=== PATIENT | female | born 2000 | race Caucasian/White ===

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

== ENCOUNTER 2018-09-19 19:48 | Emergency (ER) | payer MEDICAID ==
[~2018-09-19] VITALS: Ht 165.1 cm; Wt 62.0 kg
[~2018-09-19 19:48] MED LIST changes: +HYDR-4383 PO; -HYDR-569 PO
[2018-09-19 19:56] VITALS: BP 124/62
== END 2018-09-20 | disposition home or self-care (01) ==
LOC: ER 19:49
DX: J04.0 Acute laryngitis (principal); F17.200 Nicotine dependence, unspecified, uncomplicated; Z79.899 Other long term (current) drug therapy
CPT/HCPCS: 99281

== ENCOUNTER 2019-03-08 10:17 | Emergency (ER) | payer MEDICAID ==
[~2019-03-08] VITALS: Ht 165.1 cm; Wt 65.0 kg
[2019-03-08] MEDS ORDERED: normal saline 1000ML IV soln IVB ONE (10:50)
[2019-03-08] MEDS ORDERED: ketorolac trometh. 30mg/ml inj. IV ONE (10:50)
[2019-03-08] MEDS ORDERED: morphine 4 MG/ML inj SYRINge IV PRN (10:50)
[2019-03-08] MEDS ORDERED: ondansetron/PF 4mg/2ml inj IV ONE (10:50)
[2019-03-08 10:56] LABS: CLARITY,URINE SLIGHTLY CLOUDY (Clear); COLOR,URINE STRAW (Yellow); GLUCOSE, URINE NEGATIVE (Neg); KETONES,URINE NEGATIVE (Neg); LEUKOCYTE ESTERASE ,URINE NEGATIVE (Neg); NITRITES, URINE NEGATIVE (Neg); OCCULT BLOOD,URINE NEGATIVE (Neg); PROTEIN,URINE NEGATIVE (Neg); UROBILINOGEN,URINE 0.2 E.U/dL (0.2-1.0)
[2019-03-08 10:57] LABS: UA COLLECTION TYPE CLN CATCH MIDSTREAM
[2019-03-08 11:04] LABS: BASOPHILS % (AUTO) 0.3 % (0-1); EOSINOPHILS % (AUTO) 0.5 % (0-6); HEMATOCRIT 44.2 % (35.0-45.0); HEMOGLOBIN 14.9 g/dl (12.0-16.0); LYMPHOCYTES # (AUTO) 1.6 X10'3 (1.1-4.8); LYMPHOCYTES % (AUTO) 16.2 % (21-51); MEAN CORPUSCULAR HEMOGLOBIN 31.2 PG (27.0-31.0); MEAN CORPUSCULAR HGB CONC 33.6 g/dL (33.0-36.5); MEAN CORPUSCULAR VOLUME 92.9 FL (78-98); MEAN PLATELET VOLUME 8.3 FL (7.4-10.4); MONOCYTES # (AUTO) 0.8 X10'3 (0-0.9); MONOCYTES % (AUTO) 7.9 % (2-12); NEUTROPHILS # (AUTO) 7.4 X10'3 (1.8-7.7); NEUTROPHILS % (AUTO) 75.1 % (42-75); PLATELET COUNT 227 X10'3 (140-440); RED BLOOD COUNT 4.76 X10'6 (4.20-5.60); WHITE BLOOD COUNT 9.9 X10'3 (4.5-11.0)
[2019-03-08 11:05] LABS: MUCUS STRANDS NONE SEEN /LPF (Neg); SQUAMOUS EPITHELIAL CELL,UR MANY /LPF (FEW); TRANSITIONAL EPI CELLS,URINE FEW /HPF
[2019-03-08 11:06] LABS: BACTERIA,URINE 3+ /HPF (Neg); RBC,URINE 0-2 /HPF (0-2); WBC,URINE 0-4 /HPF (0-4)
[2019-03-08 11:11] LABS: URINE HCG NEGATIVE (NEG)
[2019-03-08 11:22] LABS: ALANINE AMINOTRANSFERASE 15 U/L (12-78); ALBUMIN 3.9 G/DL (3.4-5.0); ALBUMIN/GLOBULIN RATIO 1.1 (1.1-1.5); ALKALINE PHOSPHATASE 86 IU/L (20-180); ANION GAP 9 (8-16); ASPARTATE AMINO TRANSFERASE 12 U/L (10-37); BILIRUBIN,TOTAL 0.8 MG/DL (0.1-1.0); BLOOD UREA NITROGEN 6 MG/DL (7-18); BUN/CREATININE RATIO 7.1 (6.6-38.0); CALCIUM 8.9 MG/DL (8.5-10.1); CHLORIDE 107 MMOL/L (99-107); CREATININE 0.85 MG/DL (0.40-0.90); GLUCOSE 84 MG/DL (70-104); POTASSIUM 4.4 MMOL/L (3.5-5.1); SODIUM 141 MMOL/L (135-145); TOTAL CARBON DIOXIDE 24.8 MMOL/L (24-32); TOTAL PROTEIN 7.5 G/DL (6.4-8.2); eGFR 85 ML/MIN
--- NOTE | 2019-03-08 12:03 | NUR ---
ULTRASOUND AT BEDSIDE
--- NOTE | 2019-03-08 12:37 | NUR ---
ULTRSOUND IS FINISHED
[2019-03-08 13:24] VITALS: BP 118/54
== END 2019-03-08 13:27 | disposition home or self-care (01) ==
LOC: ER 10:17
DX: R10.32 Left lower quadrant pain (principal); Z79.899 Other long term (current) drug therapy
CPT/HCPCS: 36415; 76856; 80053; 81001; 81025; 85025; 96374; 96375; 99284; J1885; J2270; J2405; J7030

== ENCOUNTER 2020-12-22 11:51 | Emergency (ER) | payer MEDICAID ==
[~2020-12-22] VITALS: Ht 162.6 cm; Wt 78.0 kg
[2020-12-22 12:07] VITALS: BP 136/114
[2020-12-22] MEDS ORDERED: ketorolac tromethamine 15mg/ml inj. IM ONE (12:50)
[2020-12-22] MEDS ORDERED: PENI500T2 PO (12:52)
== END 2020-12-22 13:08 | disposition home or self-care (01) ==
LOC: ER 11:51
DX: K08.89 Other specified disorders of teeth and supporting structures (principal); R51.9 Headache, unspecified; Z72.89 Other problems related to lifestyle; Z79.899 Other long term (current) drug therapy; Z79.2 Long term (current) use of antibiotics
CPT/HCPCS: 96372; 99283; J1885

== ENCOUNTER 2021-01-24 10:55 | Emergency (ER) | payer MEDICAID ==
[~2021-01-24] VITALS: Ht 165.1 cm; Wt 84.5 kg
[2021-01-24 11:05] VITALS: BP 130/85
== END 2021-01-24 12:09 | disposition home or self-care (01) ==
LOC: ER 10:56
DX: B34.9 Viral infection, unspecified (principal); Z20.822 Contact with and (suspected) exposure to COVID-19; Z72.89 Other problems related to lifestyle; Z79.899 Other long term (current) drug therapy
CPT/HCPCS: 87635; 99283; C9803

== ENCOUNTER 2021-05-21 19:51 | Emergency (ER) | payer MEDICAID ==
[~2021-05-21] VITALS: Ht 162.6 cm; Wt 90.0 kg
[2021-05-21 20:05] VITALS: BP 124/83
[2021-05-21 20:25] LABS: BASOPHILS % (AUTO) 0.3 % (0-1); EOSINOPHILS # (AUTO) 0.1 X10'3 (0-0.9); EOSINOPHILS % (AUTO) 0.5 % (0-6); HEMATOCRIT 42.2 % (35.0-45.0); HEMOGLOBIN 14.6 g/dl (12.0-16.0); LYMPHOCYTES % (AUTO) 9.1 % (21-51); MEAN CORPUSCULAR HEMOGLOBIN 30.5 PG (27.0-31.0); MEAN CORPUSCULAR HGB CONC 34.7 g/dL (33.0-36.5); MEAN CORPUSCULAR VOLUME 87.9 FL (78-98); MEAN PLATELET VOLUME 7.8 FL (7.4-10.4); MONOCYTES # (AUTO) 0.4 X10'3 (0-0.9); MONOCYTES % (AUTO) 3.7 % (2-12); NEUTROPHILS % (AUTO) 86.4 % (42-75); PLATELET COUNT 281 X10'3 (140-440); RED CELL DISTRIBUTION WIDTH 13.4 % (11.5-14.5); WHITE BLOOD COUNT 10.5 X10'3 (4.5-11.0)
[2021-05-21 20:37] LABS: ALANINE AMINOTRANSFERASE 20 U/L (12-78); ALBUMIN/GLOBULIN RATIO 1.1 (1.1-1.5); ALKALINE PHOSPHATASE 114 IU/L (46-116); ANION GAP 7 (8-16); ASPARTATE AMINO TRANSFERASE 16 U/L (10-37); BILIRUBIN,TOTAL 1.1 MG/DL (0.1-1.0); BLOOD UREA NITROGEN 11 MG/DL (7-18); BUN/CREATININE RATIO 13.3 (6.6-38.0); CALCIUM 8.6 MG/DL (8.5-10.1); CHLORIDE 106 MMOL/L (99-107); CREATININE 0.83 MG/DL (0.40-0.90); GLUCOSE 107 MG/DL (70-104); POTASSIUM 4.2 MMOL/L (3.5-5.1); SODIUM 140 MMOL/L (135-145); TOTAL CARBON DIOXIDE 27.1 MMOL/L (24-32); TOTAL PROTEIN 7.6 G/DL (6.4-8.2); eGFR 85 ML/MIN
[2021-05-21 21:54] LABS: CLARITY,URINE CLEAR (Clear); COLOR,URINE YELLOW (Yellow); GLUCOSE, URINE NEGATIVE (Neg); KETONES,URINE NEGATIVE (Neg); LEUKOCYTE ESTERASE ,URINE NEGATIVE (Neg); NITRITES, URINE NEGATIVE (Neg); OCCULT BLOOD,URINE NEGATIVE (Neg); PH,URINE 6.5 (4.8-8.0); PROTEIN,URINE NEGATIVE (Neg); URINE HCG NEGATIVE (NEG); UROBILINOGEN,URINE 0.2 E.U/dL (0.2-1.0)
[2021-05-21 22:11] LABS: UA COLLECTION TYPE CLN CATCH MIDSTREAM
== END 2021-05-22 00:32 | disposition left against medical advice (07) ==
LOC: ER 19:52
DX: R10.30 Lower abdominal pain, unspecified (principal); Z53.21 Procedure and treatment not carried out due to patient leaving prior to being seen by health care provider
CPT/HCPCS: 36415; 80053; 81003; 81025; 85025

== ENCOUNTER 2021-12-16 12:03 | Emergency (ER) | payer MEDICAID ==
[~2021-12-16] VITALS: Ht 165.1 cm; Wt 78.2 kg
[2021-12-16] MEDS ORDERED: ondansetron 4mg rapidly disintigrating tab PO ONE (13:30)
[2021-12-16] MEDS ORDERED: HYDROcodone/acetaminophen 10/325mg tab PO ONE (13:30)
[2021-12-16] MEDS ORDERED: ketorolac trometh. 30mg/ml inj. IM ONE (13:30)
[2021-12-16 13:46] VITALS: BP 94/65
[2021-12-16 14:08] LABS: BASOPHILS % (AUTO) 0.1 % (0-1); EOSINOPHILS % (AUTO) 0.1 % (0-6); HEMATOCRIT 39.2 % (35.0-45.0); HEMOGLOBIN 13.5 g/dl (12.0-16.0); LYMPHOCYTES # (AUTO) 0.2 X10'3 (1.1-4.8); LYMPHOCYTES % (AUTO) 2.2 % (21-51); MEAN CORPUSCULAR HEMOGLOBIN 29.6 PG (27.0-31.0); MEAN CORPUSCULAR HGB CONC 34.4 g/dL (33.0-36.5); MEAN CORPUSCULAR VOLUME 86.1 FL (78-98); MEAN PLATELET VOLUME 8.3 FL (7.4-10.4); MONOCYTES # (AUTO) 0.4 X10'3 (0-0.9); MONOCYTES % (AUTO) 6.1 % (2-12); NEUTROPHILS # (AUTO) 6.2 X10'3 (1.8-7.7); NEUTROPHILS % (AUTO) 91.5 % (42-75); PLATELET COUNT 239 X10'3 (140-440); RED BLOOD COUNT 4.55 X10'6 (4.20-5.60); RED CELL DISTRIBUTION WIDTH 13.1 % (11.5-14.5); WHITE BLOOD COUNT 6.8 X10'3 (4.5-11.0)
[2021-12-16 14:09] LABS: CLARITY,URINE CLEAR (Clear); COLOR,URINE YELLOW (Yellow); GLUCOSE, URINE NEGATIVE (Neg); KETONES,URINE NEGATIVE (Neg); LEUKOCYTE ESTERASE ,URINE NEGATIVE (Neg); NITRITES, URINE NEGATIVE (Neg); OCCULT BLOOD,URINE NEGATIVE (Neg); PH,URINE >=9.0 (4.8-8.0); PROTEIN,URINE TRACE mg/dl (Neg); UROBILINOGEN,URINE 0.2 E.U/dL (0.2-1.0)
[2021-12-16 14:11] LABS: UA COLLECTION TYPE CLN CATCH MIDSTREAM
[2021-12-16 14:20] LABS: BACTERIA,URINE NONE SEEN /HPF (Neg); RBC,URINE NONE SEEN /HPF (0-2); SQUAMOUS EPITHELIAL CELL,UR FEW /LPF (FEW); WBC,URINE NONE SEEN /HPF (0-4)
[2021-12-16 14:21] LABS: MUCUS STRANDS FEW /LPF (Neg)
[2021-12-16 14:23] LABS: ALANINE AMINOTRANSFERASE 21 U/L (12-78); ALBUMIN 3.9 G/DL (3.4-5.0); ALBUMIN/GLOBULIN RATIO 1.1 (1.1-1.5); ALKALINE PHOSPHATASE 76 IU/L (46-116); ANION GAP 11 (8-16); ASPARTATE AMINO TRANSFERASE 19 U/L (10-37); BILIRUBIN,TOTAL 0.5 MG/DL (0.1-1.0); BLOOD UREA NITROGEN 6 MG/DL (7-18); CALCIUM 8.9 MG/DL (8.5-10.1); CHLORIDE 107 MMOL/L (99-107); CREATININE 0.86 MG/DL (0.40-0.90); GLUCOSE 96 MG/DL (70-104); POTASSIUM 3.8 MMOL/L (3.5-5.1); SODIUM 140 MMOL/L (135-145); TOTAL CARBON DIOXIDE 22.4 MMOL/L (24-32); TOTAL PROTEIN 7.6 G/DL (6.4-8.2); eGFR 82 ML/MIN
[2021-12-16 14:31] LABS: BETA HCG,QUANTITATIVE < 1.0 mIU/ml; LIPASE 103 U/L (73-393)
[2021-12-16 14:58] LABS: URINE AMPHETAMINE SCREEN NEGATIVE (Neg); URINE BARBITUATE SCREEN NEGATIVE (Neg); URINE BENZODIAZEPINES SCREEN NEGATIVE (Neg); URINE CANNABINOID SCREEN POSITIVE (Neg); URINE COCAINE SCREEN NEGATIVE (Neg); URINE METHADONE SCREEN NEGATIVE (Neg); URINE OPIATE SCREEN NEGATIVE (Neg); URINE PHENCYCLIDINE SCREEN NEGATIVE (Neg)
[2021-12-16] MEDS ORDERED: HYDR-3965 PO (15:17)
== END 2021-12-16 16:18 | disposition home or self-care (01) ==
LOC: ER 12:05
DX: M54.42 Lumbago with sciatica, left side (principal); M54.41 Lumbago with sciatica, right side; Z88.0 Allergy status to penicillin; Z88.5 Allergy status to narcotic agent; Z87.891 Personal history of nicotine dependence
CPT/HCPCS: 36415; 80053; 80305; 81001; 83690; 84702; 85025; 96372; 99283; J1885

== ENCOUNTER 2022-04-30 13:24 | Emergency (ER) | payer MEDICAID ==
[~2022-04-30] VITALS: Ht 165.1 cm; Wt 78.5 kg
[2022-04-30 14:10] VITALS: BP 117/76
[2022-04-30 14:47] LABS: URINE HCG NEGATIVE (NEG)
[2022-04-30 14:49] LABS: CLARITY,URINE CLEAR (Clear); COLOR,URINE YELLOW (Yellow); GLUCOSE, URINE NEGATIVE (Neg); KETONES,URINE NEGATIVE (Neg); LEUKOCYTE ESTERASE ,URINE NEGATIVE (Neg); NITRITES, URINE NEGATIVE (Neg); OCCULT BLOOD,URINE NEGATIVE (Neg); PROTEIN,URINE NEGATIVE (Neg); UROBILINOGEN,URINE 0.2 E.U/dL (0.2-1.0)
[2022-04-30 14:59] LABS: UA COLLECTION TYPE CLN CATCH MIDSTREAM
== END 2022-04-30 16:44 | disposition home or self-care (01) ==
LOC: ER 13:28
DX: N23 Unspecified renal colic (principal); R39.15 Urgency of urination; R35.0 Frequency of micturition; R30.0 Dysuria; Z88.5 Allergy status to narcotic agent; Z88.0 Allergy status to penicillin; Z79.899 Other long term (current) drug therapy
CPT/HCPCS: 81003; 81025; 99283

== ENCOUNTER 2023-08-29 16:22 | Emergency (ER) | payer MEDICAID ==
[~2023-08-29] VITALS: Ht 165.1 cm; Wt 78.8 kg
[2023-08-29 16:25] VITALS: BP 132/85; PULSE 96; RESP 16; TEMP 98.9; O2SAT 99
[2023-08-29] MEDS ORDERED: NIRM1TAB9 PO (17:33)
[2023-08-29] MEDS: dexamethasone sod phosphate 10mg/ml inj PO STA (17:48)
[2023-08-29] MEDS: ibuprofen 200mg tablet PO ONE (17:54)
== END 2023-08-29 18:04 | disposition home or self-care (01) ==
LOC: ER 16:23
DX: U07.1 COVID-19 (principal); Z88.8 Allergy status to other drugs, medicaments and biological substances; Z79.899 Other long term (current) drug therapy
CPT/HCPCS: 36415; 87811; 99283; J1100

== ENCOUNTER 2024-09-10 09:28 | Emergency (ER) | payer SELFPAY ==
[~2024-09-10] VITALS: Ht 165.1 cm; Wt 74.9 kg
[~2024-09-10 09:28] MED LIST changes: +NIRM1TAB9 PO
[2024-09-10 09:33] VITALS: TEMP 98.1
[2024-09-10 10:41] VITALS: BP 118/88; PULSE 65; RESP 16; O2SAT 100
[2024-09-10 11:47] LABS: BASOPHILS % (AUTO) 0.4 % (0-1); EOSINOPHILS % (AUTO) 0.3 % (0-6); HEMATOCRIT 40.8 % (35.0-45.0); HEMOGLOBIN 14.2 g/dl (12.0-16.0); LYMPHOCYTES # (AUTO) 2.2 X10'3 (1.1-4.8); LYMPHOCYTES % (AUTO) 25.7 % (21-51); MEAN CORPUSCULAR HEMOGLOBIN 31.6 PG (27.0-31.0); MEAN CORPUSCULAR HGB CONC 34.9 g/dL (33.0-36.5); MEAN CORPUSCULAR VOLUME 90.5 FL (78-98); MEAN PLATELET VOLUME 8.1 FL (7.4-10.4); MONOCYTES # (AUTO) 0.4 X10'3 (0-0.9); MONOCYTES % (AUTO) 4.2 % (2-12); NEUTROPHILS # (AUTO) 5.9 X10'3 (1.8-7.7); NEUTROPHILS % (AUTO) 69.4 % (42-75); PLATELET COUNT 273 X10'3 (140-440); RED CELL DISTRIBUTION WIDTH 13.3 % (11.5-14.5); WHITE BLOOD COUNT 8.6 X10'3 (4.5-11.0)
[2024-09-10 11:55] LABS: ANION GAP 5 (8-16); BLOOD UREA NITROGEN 10 MG/DL (7-18); BUN/CREATININE RATIO 12.8 (10.0-20.0); CALCIUM 8.9 MG/DL (8.5-10.1); CHLORIDE 107 MMOL/L (99-107); CREATININE 0.78 MG/DL (0.40-0.90); GLUCOSE 88 MG/DL (70-104); POTASSIUM 4.1 MMOL/L (3.5-5.1); SODIUM 140 MMOL/L (135-145); TOTAL CARBON DIOXIDE 28.3 MMOL/L (24-32); eCRCL 98 ML/MIN; eGFR 89 ML/MIN
[2024-09-10 13:03] LABS: BILIRUBIN,URINE NEGATIVE (Neg); CLARITY,URINE CLEAR (Clear); COLOR,URINE YELLOW (Yellow); GLUCOSE, URINE NEGATIVE (Neg); KETONES,URINE NEGATIVE (Neg); LEUKOCYTE ESTERASE ,URINE NEGATIVE (Neg); NITRITES, URINE NEGATIVE (Neg); OCCULT BLOOD,URINE NEGATIVE (Neg); PROTEIN,URINE NEGATIVE (Neg); UROBILINOGEN,URINE 0.2 E.U/dL (0.2-1.0)
[2024-09-10 13:05] LABS: UA COLLECTION TYPE CLN CATCH MIDSTREAM
== END 2024-09-10 13:04 | disposition home or self-care (01) ==
LOC: ER 09:29
DX: S83.92XA Sprain of unspecified site of left knee, initial encounter (principal); Z88.0 Allergy status to penicillin; Z88.5 Allergy status to narcotic agent; X58.XXXA Exposure to other specified factors, initial encounter; Y93.89 Activity, other specified; Y92.89 Other specified places as the place of occurrence of the external cause; Y99.8 Other external cause status
CPT/HCPCS: 36415; 73564; 80048; 81003; 83605; 85025; 87040; 93971; 99284

== ENCOUNTER 2024-12-16 04:08 | Emergency (ER) | payer MEDICAID ==
[~2024-12-16] VITALS: Ht 165.1 cm; Wt 71.0 kg
[2024-12-16 04:25] VITALS: BP 114/84; PULSE 72; TEMP 97.3; O2SAT 99
--- NOTE | 2024-12-16 04:54 | Physician Documentation ---
HPI ~ General Chief Complaint: Tooth Problem Stated Complaint: TOOTH PAIN Time Seen by MD: 04:40 Primary Medical Doctor: KATINA History of Present Illness HPI Comment Patient presents to the emergency room for evaluation of dental pain. Patient has been working the past month try and get her dental pain and dress that has not had any luck. She was seen at [facility] earlier this evening twice and had dental blocks performed twice that were for a proximally 2 hours however she continues to have pain. She also is taking ibuprofen 600 mg prior to arrival. Medication Reconciliation Allergies: Coded Allergies: morphine (Verified Allergy, Unknown, THROAT SWELLING, 12/16/24) penicillin V (Verified Allergy, Unknown, "FEEL WEIRD AND FUZZY", 12/16/24) Uncoded Allergies: PENICILLIN (Allergy, Unknown, FEEL WIERD AND FUZZY, 05/21/21) Scheduled Acetaminophen with Codeine (Tylenol with Codeine #3 Tablet), 1 TAB PO Q6H PRN Calamine (Calamine Lotion), 1 UNIT TOP BID Hydrocodone/Acetaminophen ([place] 5-325 Tablet), 1 TAB PO TID PRN Nirmatrelvir/Ritonavir (Paxlovid 300-100 mg Dose Pack), 300 MG PO BID Triamcinolone Acetonide 0.1% Crm* (Kenalog 0.1% Crm*), 1 APPLIC TP BID Triamcinolone Acetonide 0.5% Crm* (Kenalog 0.5% Crm*), 1 APPLIC TOP Q12H Scheduled PRN Cyclobenzaprine* (Cyclobenzaprine*), 1 TABLET PO Q8H PRN for muscle spasms Diphenhydramine Hcl (Benadryl), 25 MG PO Q6H PRN PRN for itching Past Medical History Past Medical History: No Pertinent History Past Surgical History: no surgical history Alcohol Use: Occasionally Drug Use: none Lives with: Mother, Father Lives In: Home Occupation: student Review of Systems ROS All review of systems negative except as per HPI Physical Exam Vital Signs: Temperature: 97.3, Source: Oral, Heart Rate: 72, Respiratory Rate: 16, BP: 114/84, Pulse Oximetry: 99, Weight: 71.050 Oxygen Flow Rate: 0 Physical Exam General: Patient is awake, alert, oriented x4 in mild distress Head: Normocephalic and atraumatic. Eyes: Conjunctival normal. EOMI. PERRL. ENT: Mucous membranes moist. No appreciable abscess Neck: Supple, trachea is midline. Chest: Clear to auscultation bilaterally without rales, rhonchi, or wheezes. There is no accessory muscle use or retractions. Cardiac: RRR without murmurs, gallops, or rubs. Progress Results/Orders Results/Orders Vital Signs 12/16/24 04:25 Temp 97.3 Pulse 72 Resp 16 B/P (MAP) 114/84 Pulse Ox 99 O2 Flow Rate 0 Medical Decision Making Findings Patient presents to the emergency room for dental pain as per HPI. Differentials include but are not limited to dental pain, dental abscess, herpangina, referred pain. No appreciable abscess on physical exam. Dental block performed. She already has prescriptions waiting for her at her pharmacy. Departure Disposition: HOME / SELF CARE / HOMELESS Impression: Primary Impression: Toothache Condition: Stable Discharge Instructions: Dental Pain Additional Instructions: Continue to follow up with dentist Referrals: NO PRIMARY CARE PROVIDER (PCP) Signature Scribe Signature: No scribe Attestation: The note accurately reflects work and decisions made by me.Jovanni Nesbitt MD 12/16/24 04:54 JOVANNI NESBITT MD Dec 16, 2024 04:54
[2024-12-16] MEDS: ondansetron 4mg rapidly disintigrating tab PO ONE (05:04)
[2024-12-16] MEDS: HYDROcodone/acetaminophen 5mg/325mg tablet PO ONE (05:05)
[2024-12-16 05:09] VITALS: RESP 16
== END 2024-12-16 05:05 | disposition home or self-care (01) ==
LOC: ER 04:09
DX: K08.89 Other specified disorders of teeth and supporting structures (principal); Z88.0 Allergy status to penicillin; Z88.5 Allergy status to narcotic agent; Z88.8 Allergy status to other drugs, medicaments and biological substances
CPT/HCPCS: 99283

== ENCOUNTER 2024-12-22 21:04 | Emergency (ER) | payer MEDICAID ==
[~2024-12-22] VITALS: Ht 165.1 cm; Wt 61.8 kg
[2024-12-22 21:08] VITALS: BP 142/85; PULSE 83; RESP 15; O2SAT 98
[2024-12-22] MEDS ORDERED: LIDOCAINE 2% (20mg/ml) w/EPINEPHRINE 1:200,000-PF 10 ML inj. SQ ONE (23:10)
--- NOTE | 2024-12-22 23:40 | Physician Documentation ---
HPI ~ General Chief Complaint: Tooth Problem Stated Complaint: EAR PAIN Time Seen by MD: 21:22 Primary Medical Doctor: KATINA History of Present Illness HPI Comment Patient is a 24-year-old female that presents with the emergency department for evaluation of left upper dental pain x1 week. Patient reports that she is currently taking antibiotics and was prescribed pain medication after being seen at another facility and this facility in the last week. Reports that she has had dental blocks x3 this week that has been effective and helped a little bit. Reports that she has a dental appointment this week in the any pain medication that she was prescribed is only making her sick not getting rid of the pain. Medication Reconciliation Allergies: Coded Allergies: morphine (Verified Allergy, Unknown, THROAT SWELLING, 12/22/24) penicillin V (Verified Allergy, Unknown, "FEEL WEIRD AND FUZZY", 12/22/24) Uncoded Allergies: PENICILLIN (Allergy, Unknown, FEEL WIERD AND FUZZY, 05/21/21) Scheduled Acetaminophen with Codeine (Tylenol with Codeine #3 Tablet), 1 TAB PO Q6H PRN Calamine (Calamine Lotion), 1 UNIT TOP BID Hydrocodone/Acetaminophen ([place] 5-325 Tablet), 1 TAB PO TID PRN Nirmatrelvir/Ritonavir (Paxlovid 300-100 mg Dose Pack), 300 MG PO BID Triamcinolone Acetonide 0.1% Crm* (Kenalog 0.1% Crm*), 1 APPLIC TP BID Triamcinolone Acetonide 0.5% Crm* (Kenalog 0.5% Crm*), 1 APPLIC TOP Q12H Scheduled PRN Cyclobenzaprine* (Cyclobenzaprine*), 1 TABLET PO Q8H PRN for muscle spasms Diphenhydramine Hcl (Benadryl), 25 MG PO Q6H PRN PRN for itching Past Medical History Past Medical History: No Pertinent History Past Surgical History: no surgical history Smoking Status: Never smoker Alcohol Use: Occasionally Drug Use: none Lives with: Mother, Father Lives In: Home Occupation: student Review of Systems All Other Systems at this time: Reviewed and Negative ROS As stated above in the HPI, otherwise all systems are reviewed and negative. Physical Exam Vital Signs: Temperature: 98.6, Source: Temporal, Heart Rate: 83, Respiratory Rate: 15, BP: 142/85, Pulse Oximetry: 98, Weight: 61.750 Physical Exam VITALS: Reviewed and as above. GENERAL: Alert, no apparent distress. HEENT: Normocephalic, atraumatic, PERRL, EOMI, dry mucosa, no erythema, pain with palpation of the upper left gums. RESPIRATORY: Lungs clear, normal breath sounds, no respiratory distress. CHEST: No accessory muscle use, no retractions CV: Regular rate, rhythm, no edema, no murmur, No: JVD GI: Soft, non-tender, bowels sounds present, no rebound, guarding, or rigidity BACK: No CVA tenderness, or swelling MUSCULOSKELETAL No deformities, no edema SKIN: Warm and dry, no rash NEURO: Oriented x4, No motor or sensory deficit PSYCH: Normal mood and affect, no agitation Procedures Procedures A dental block for significant pain was performed by Dr. Logan here in the emergency department today. Present lidocaine with epi was used. Procedure was successful, no complications. Nerve Block Nerve Block Site: Left rear molar of the upper jaw. Inferior alveolar nerve. Anesthetic Used: lidocaine 2% Volume Anesthetic (ccs): 3 Tolerated Procedure Well?: yes, no complications Progress Results/Orders Results/Orders Completed Orders - CORI NEAL SHAREHOLDER Lidocaine 1% W/Epi 1:100,000 (Xylocaine (12/22/24 23:25) Vital Signs 12/22/24 21:08 Temp 98.6 Pulse 83 Resp 15 B/P (MAP) 142/85 Pulse Ox 98 Medical Decision Making Findings Patient presents for dental pain due to suspected dental zheng. Patient not immunosuppressed, afebrile and well appearing with patent airway, have low suspicfion for deep space infection or any concern for airway compromise. Based on history, physical, and work up. Evident of tooth fracture. No evidence of RPA, [employer]GER, [place] angina, periapical abscess. Offered patient dental nerve block for pain which patient accepted. Instructed patient to continue to treat pain with ibuprofen/acetaminophen until they see a dentist. Patient previously prescribed antibiotic Patient discharged home and will follow up with dentist. Discussed return precautions for odontogenic infections and other dental pain emergencies. Patient has a follow up dentist appointment. Departure Disposition: HOME / SELF CARE / HOMELESS Impression: Primary Impression: Dental abscess Condition: Stable Additional Instructions: Ideas I you for dental pain. Performed a dental block here in the ER today. Please continue to take your pain medication as prescribed Tylenol ibuprofen as needed and follow up with your dentist. Please follow up with your primary care provider. Please return to the emergency department if you have worsening of symptoms or any additional concerning symptoms. Referrals: NO PRIMARY CARE PROVIDER (PCP) Prescriptions Metronidazole* (Flagyl*) 500 Mg Tablet 1 TAB PO Q12H for 7 Days, #14 TAB Prov: CORI NELA 12/23/24 Education Educated: Patient Educated regarding: diagnosis, treatment, need for follow up Signature Scribe Signature: . Attestation: Scribed for Cori Neal by DELANEY Carr . 12/22/24 23:41 CORI NEAL Dec 22, 2024 23:40
[2024-12-22] MEDS: LIDOcaine 1% W/epiNEPHrine 1:100,000 20ml vial IJ ONE (23:47)
[2024-12-23] MEDS ORDERED: METR-159 PO
[2024-12-23 00:08] VITALS: TEMP 98.6
== END 2024-12-23 00:12 | disposition home or self-care (01) ==
LOC: ER 21:05
DX: K04.7 Periapical abscess without sinus (principal); Z88.0 Allergy status to penicillin; Z88.5 Allergy status to narcotic agent; Z88.8 Allergy status to other drugs, medicaments and biological substances
CPT/HCPCS: 64400; 99284

== ENCOUNTER 2025-03-29 10:30 | Emergency (ER) | payer MEDICAID ==
[~2025-03-29] VITALS: Ht 165.1 cm; Wt 69.4 kg
[~2025-03-29 10:30] MED LIST changes: +NIRM1TAB13 PO; -NIRM1TAB9 PO
[2025-03-29 10:41] VITALS: BP 114/76; PULSE 94; RESP 18; TEMP 97.2; O2SAT 97
--- NOTE | 2025-03-29 13:40 | VASCULAR REPORT ---
Technique: Real-time ultrasound imaging, with color Doppler and compression of the right common femoral vein, femoral vein, greater saphenous vein, and popliteal vein. Indication: Pain in the posterior right calf, thigh Comparison: VASC VL VENOUS on DOS: 09/10/24 Findings: There is normal compressibility and flow augmentation in all of the imaged deep veins. There are no filling defects. Impression: No evidence of DVT in the right lower extremity
[2025-03-29] MEDS ORDERED: IBUP-1986 PO (14:29)
--- NOTE | 2025-03-29 14:29 | Physician Documentation ---
History of Present Illness ~ Chief Complaint: Leg Pain Stated Complaint: DVT RULE OUT Time Seen by MD: 11:05 Primary Medical Doctor: KATINA LOPEZ This is a 24-year-old female who presents with right posterior calf pain extending to lower posterior thigh, patient presents pain present for the past three days. Patient reports she was at a primary care provider visit to address this pain and was directed to the emergency department due to concern for DVT. Patient reports no other acute symptoms or concerns including no shortness of breath or chest pain. Tetanus witin 5 years: Yes Medication Reconciliation Allergies: Coded Allergies: morphine (Verified Allergy, Unknown, THROAT SWELLING, 03/29/25) penicillin V (Verified Allergy, Unknown, "FEEL WEIRD AND FUZZY", 03/29/25) Uncoded Allergies: PENICILLIN (Allergy, Unknown, FEEL WIERD AND FUZZY, 05/21/21) Scheduled Acetaminophen with Codeine (Tylenol with Codeine #3 Tablet), 1 TAB PO Q6H PRN Calamine (Calamine Lotion), 1 UNIT TOP BID Hydrocodone/Acetaminophen ([place] 5-325 Tablet), 1 TAB PO TID PRN Ibuprofen (Ibuprofen), 1 TAB PO Q8H Nirmatrelvir/Ritonavir (Paxlovid 300-100 mg Dose Pack), 300 MG PO BID Triamcinolone Acetonide 0.1% Crm* (Kenalog 0.1% Crm*), 1 APPLIC TP BID Triamcinolone Acetonide 0.5% Crm* (Kenalog 0.5% Crm*), 1 APPLIC TOP Q12H Scheduled PRN Cyclobenzaprine* (Cyclobenzaprine*), 1 TABLET PO Q8H PRN for muscle spasms Diphenhydramine Hcl (Benadryl), 25 MG PO Q6H PRN PRN for itching Past Medical History Past Medical History: No Pertinent History Past Surgical History: no surgical history Alcohol Use: Occasionally Drug Use: none Lives with: Mother, Father Lives In: Home Occupation: student Review of Systems ROS As stated above in the HPI, otherwise all systems are reviewed and negative. Physical Exam Vital Signs: Temperature: 97.2, Source: Temporal, Heart Rate: 94, Respiratory Rate: 18, BP: 114/76, Pulse Oximetry: 97, Weight: 69.400 Physical Exam VITALS: Reviewed and as above. GENERAL: Alert, nontoxic appearing, no apparent distress. RESPIRATORY: No increased work of breathing, no respiratory distress, speaking in full clear sentences MUSCULOSKELETAL: Right posterior calf and posterior thigh tenderness to palpation, no significant swelling of right calf as compared to left calf Progress Results/Orders Results/Orders Orders - SHILPA ANDREW Vl Venous (03/29/25 11:06) Completed Orders - SHILPA ANDREW POT WASHER Vl Venous (03/29/25 11:06) Ibuprofen Tablet (Motrin Tablet) (03/29/25 14:30) Vital Signs 03/29/25 10:41 Temp 97.2 Pulse 94 Resp 18 B/P (MAP) 114/76 Pulse Ox 97 EKG/XRAY/CT/US/VASC/MRI Vascular : Impression Exam Name: VENOUS Technologist: Margie Galvez Technique: Real-time ultrasound imaging, with color Doppler and compression of the right common femoral vein, femoral vein, greater saphenous vein, and popliteal vein. Indication: Pain in the posterior right calf, thigh Comparison: VASC VL VENOUS on DOS: 09/10/24 Findings: There is normal compressibility and flow augmentation in all of the imaged deep veins. There are no filling defects. Impression: No evidence of DVT in the right lower extremity Dictated by:CARLOS BOWERS MD Dictation date and time:03/29/251341 Electronically Signed by: CARLOS BOWERS MD Date and Time: 03/29/251341 Transcribed: ZAKI Medical Decision Making Additional information obtaine: N/A Findings This 24-year-old female presented with posterior calf and posterior thigh pain, there was concern for DVT at patient's primary care provider so she came to the emergency department, vascular ultrasound of the area did not demonstrate evidence of DVT and patient is otherwise well-appearing and appropriate for outpatient follow up, as there was no clear explanation for patient's posterior calf pain and there appears to be no emergent medical condition, patient will follow up with primary care provider for posterior leg pain. Patient provided home care instructions, return to care precautions, and follow up instructions. General Diff Dx:Considerations: Include: Abrasion, Contusion, Fracture, Hematoma, Neurovascular injury, Sprain, Other (DVT, PE he) Knee Diff Dx:Considerations: Include: Fracture-femur, Gout, Septic, Sprain Ankle Diff Dx:Considerations: Include: Abrasion, Arthritis, Sprain Foot Diff Dx:Considerations: Unlikely: Abrasion, Arthritis, Cellulitis, Contusion, Dislocation, DJD, Fracture-metatarsal, Fracture-phalynx, Fracture- tarsal, Gout, Hematoma, Ingrown toenail, Laceration, Malunion, Neurovascular injury, Open fracture, Paronychia, Puncture, Rheumatoid, Sprain, Septic, Subungual hematoma, Ulcer, Other Toe Diff Dx:Considerations: Unlikely: Abrasion, Cellulitis, Contusion, Dislocation, Felon, Fracture, Hematoma, Laceration, Neurovascular injury, Open fracture, Paronychia, Subungual hematoma, Other Departure Time of Disposition: 14:28 Disposition: 01 HOME / SELF CARE / HOMELESS Impression: Primary Impression: Right leg pain Condition: Improved Discharge Instructions: RICE Therapy for Routine Care of Injuries, [id number] Additional Instructions: Please use the prescribed ibuprofen as needed for pain, take this medication with food to avoid stomach upset. Please follow up with your primary care provider in the next few days. Please return to the emergency department for any new or worsening concerning symptoms. Referrals: NO PRIMARY CARE PROVIDER (PCP) Prescriptions Ibuprofen (Ibuprofen) 800 Mg Tablet 1 TAB PO Q8H for pain for 10 Days, #30 TAB 0 Refills Prov: SHILPA ANDREW 03/29/25 Education Educated: Patient Educated regarding: diagnosis, treatment, prognosis, need for follow up Signature Scribe Signature: No scribe Attestation: The note accurately reflects work and decisions made by me.DELANEY Randall 03/29/25 20:50 SHILPA ANDREW Mar 29, 2025 14:29
[2025-03-29] MEDS: ibuprofen tablet 400 MG TABLET PO ONE (14:42)
== END 2025-03-29 14:45 | disposition home or self-care (01) ==
LOC: ER 10:30
DX: M79.661 Pain in right lower leg (principal); Z88.5 Allergy status to narcotic agent; Z88.0 Allergy status to penicillin; Z79.899 Other long term (current) drug therapy; Z72.89 Other problems related to lifestyle
CPT/HCPCS: 93971; 99284